=== PATIENT | male | born 1950 | race Caucasian/White ===

== ENCOUNTER 2019-01-20 20:49 | Inpatient (IN) | payer MEDICARE, OTHER ==
[~2019-01-20] VITALS: Ht 172.7 cm; Wt 126.0 kg
[~2019-01-20 20:49] MED LIST: ASPIRIN PO; CLOP75TA19 PO; CRES20 PO; HYZAAR PO; ISOS30TA PO; PLAVIX; prevachol PO
--- NOTE | 2019-01-20 20:53 | QN ---
Documentation Comment Medical screening exam initiated. Patient be seen by another provider. SCOTT GUERRERO MD January 20, 2019 20:53
[2019-01-20] MEDS ORDERED: morphine 4 MG/ML VIAL IV STA (21:27)
[2019-01-20] MEDS ORDERED: ONDANSETRON 4 MG INJ IV STA (21:27)
[2019-01-20] MEDS ORDERED: NITROGLYCERIN 2% 1 GM OINT PKT TD STA (23:04)
[2019-01-20] MEDS ORDERED: ASPIRIN 81 MG TAB PO STA (23:04)
[2019-01-20] MEDS ORDERED: ONDANSETRON 4 MG INJ IV PRN (23:30)
[2019-01-20] MEDS ORDERED: ACETAMINOPHEN 325 MG TAB PO PRN (23:30)
[2019-01-20] MEDS ORDERED: NITROGLYCERIN (SL) 0.4 MG TAB SL PRN (23:30)
--- NOTE | 2019-01-20 23:45 | ERD ---
ER Documentation Chief Complaint Chief Complaint bib [id number] c/o left abd pain since yesterday HPI Patient is a 68-year-old male with coronary disease, hypertension, and diabetes who presents with chest pain and abdominal pain. The patient was brought in by ambulance. He has left upper quadrant abdominal pain which started yesterday which she describes as a constant pressure-like pain. The patient has no fevers. He has no vomiting no diarrhea. He said that his primary doctor is Dr. Jara. His head up operator helper is Dr. Giordano. ROS All systems reviewed and are negative except as per history of present illness. Medications Home Meds Reported Medications Clopidogrel Bisulfate* (Clopidogrel Bisulfate*) 75 Mg Tablet, 75 MG PO DAILY, TAB 08/01/14 Rosuvastatin Calcium* (Crestor*) 20 Mg Tablet, 20 MG PO HS, TAB 08/01/14 Isosorbide Mononitrate* (Imdur*) 30 Mg Tab.sr.24h, 30 MG PO DAILY, TAB 08/01/14 [prevachol] No Conflict Check, 40 MG PO DAILY 06/27/14 [Hyzaar] No Conflict Check, 100 MG PO DAILY 12/31/11 [Plavix] No Conflict Check, 75 MG DAILY 12/31/11 [Aspirin] No Conflict Check, 81 MG PO DAILY 12/31/11 Allergies Allergies: Coded Allergies: No Known Drug Allergy (Verified Allergy, Unknown, 08/01/14) PMhx/Soc History of Surgery: Yes (ANGIOGRAM) Anesthesia Reaction: No Hx Neurological Disorder: No Hx Respiratory Disorders: No Hx Cardiac Disorders: Yes (HTN, HYPERLIPIDEMIA, HI) Hx Psychiatric Problems: No Hx Miscellaneous Medical Probl: Yes (DM, PROSTATE CA) Hx Alcohol Use: No Hx Substance Use: No Hx Tobacco Use: Yes Smoking Status: Former smoker FmHx Family History: diabetes Physical Exam Vitals Vital Signs Date Temp Pulse Resp B/P (MAP) Pulse Ox O2 O2 Flow FiO2 Time Delivery Rate 01/20/19 98.7 71 18 191/78 96 21:08 (115) Physical Exam Const: No acute distress Head: Atraumatic Eyes: Normal Conjunctiva ENT: Normal External Ears, Nose and Mouth. Neck: Full range of motion. No meningismus. Resp: Clear to auscultation bilaterally Cardio: Regular rate and rhythm, no murmurs Abd: Soft, non tender, non distended. Normal bowel sounds Skin: No petechiae or rashes Back: No midline or flank tenderness Ext: No cyanosis, or edema Neur: Awake and alert Psych: Normal Mood and Affect Result Diagram: 01/20/19212801/20/192128 Results 24 hrs Laboratory Tests Test 01/20/19 21:29 White Blood Count 7.8 10^3/ul Red Blood Count 5.09 10^6/ul Hemoglobin 15.2 g/dl Hematocrit 46.2 % Mean Corpuscular Volume 90.8 fl Mean Corpuscular Hemoglobin 29.9 pg Mean Corpuscular Hemoglobin Concent 32.9 g/dl Red Cell Distribution Width 14.1 % Platelet Count 175 10^3/UL Mean Platelet Volume 10.8 fl Immature Granulocytes % 0.300 % Neutrophils % 60.7 % Lymphocytes % 23.6 % Monocytes % 11.6 % Eosinophils % 3.3 % Basophils % 0.5 % Nucleated Red Blood Cells % 0.0 /100WBC Immature Granulocytes # 0.020 10^3/ul Neutrophils # 4.7 10^3/ul Lymphocytes # 1.8 10^3/ul Monocytes # 0.9 10^3/ul Eosinophils # 0.3 10^3/ul Basophils # 0.0 10^3/ul Nucleated Red Blood Cells # 0.0 10^3/ul Prothrombin Time 13.1 Sec Prothrombin Time Ratio 1.0 INR International Normalized Ratio 0.98 Activated Partial Thromboplast Time 27.0 Sec Urine Color YELLOW Urine Clarity SLIGHTLY CLOUDY Urine pH 6.0 Urine Specific [place] 1.020 Urine Ketones NEGATIVE mg/dL Urine Nitrite NEGATIVE mg/dL Urine Bilirubin NEGATIVE mg/dL Urine Urobilinogen NEGATIVE mg/dL Urine Leukocyte Esterase 1+ Carl/ul Urine Microscopic RBC 122 /HPF Urine Microscopic WBC 11 /HPF Urine Squamous Epithelial Cells FEW /HPF Urine Amorphous Crystals FEW /HPF Urine Bacteria FEW /HPF Urine Hemoglobin 3+ mg/dL Urine Glucose 3+ mg/dL Urine Total Protein NEGATIVE mg/dl Sodium Level 144 mmol/L Potassium Level 4.0 mmol/L Chloride Level 103 mmol/L Carbon Dioxide Level 28 mmol/L Anion Gap 13 Blood Urea Nitrogen 26 mg/dl Creatinine 1.51 mg/dl Est Glomerular Filtrat Rate mL/min 46 mL/min Glucose Level 117 mg/dl Calcium Level 9.4 mg/dl Total Bilirubin 0.4 mg/dl Direct Bilirubin 0.00 mg/dl Indirect Bilirubin 0.4 mg/dl Aspartate Amino Transf (AST/SGOT) 26 IU/L Alanine Aminotransferase (ALT/SGPT) 29 IU/L Alkaline Phosphatase 54 IU/L Troponin I < 0.012 ng/ml Total Protein 7.7 g/dl Albumin 4.6 g/dl Globulin 3.10 g/dl Albumin/Globulin Ratio 1.48 Lipase 84 U/L Current Medications Medications Dose Sig/Sal Start Time Status Last (Trade) Ordered Route PRN Stop Time Admin Dose Reason Admin Morphine 4 mg ONCE STAT 01/20/19 DC 01/20/19 Sulfate IV 21:27 01/20/19 21:32 (morphine) 21:28 Ondansetron 4 mg ONCE STAT 01/20/19 DC 01/20/19 HCl (Zofran IV 21:27 01/20/19 21:32 Inj) 21:28 Aspirin 162 mg ONCE STAT 01/20/19 DC (Aspirin) PO 23:04 01/20/19 23:05 1 inch ONCE STAT 01/20/19 DC Nitroglycerin TD 23:04 01/20/19 23:05 (Nitroglyceri n 2% Oint) 1 tab Q5M UP TO 3 01/20/19 Nitroglycerin DOSES PRN 23:30 SL .CHEST (Nitroglyceri PAIN n (Sl Tab) 0.4 Mg) Ondansetron 4 mg ER BRIDGE 01/20/19 HCl (Zofran PRN IV 23:30 01/21/19 Inj) NAUSEA/VOMITI 23:29 NG 650 mg ER BRIDGE 01/20/19 Acetaminophen PRN PO 23:30 01/21/19 (Tylenol .MILD PAIN 23:29 Tab) 1-3 OR TEMP Procedures/MDM EKG read by me: Rate/Rhythm: First-degree AV block at a rate of 63 Intervals: Long [place] interval Impression: First-degree AV block without ischemia Chest x-ray read by radiology. CT abdomen pelvis read by radiology. Patient is a 68-year-old male with coronary disease, hypertension, and diabetes who presents with chest pain and abdominal pain. I am concerned for possible acute coronary syndrome given his significant cardiac risk factors. He said that he has 6 stents in the past. The patient was given aspirin nitroglycerin. CT scan shows possible pyelonephritis and urine sample does show 1+ leukocyte esterase. The patient therefore had a urine culture sent and will be given ceftriaxone 1 g IV. I do not believe the patient has sepsis at this time as he has normal vital signs. The patient will be admitted to the care of Dr. Ventura to a telemetry bed. Departure Diagnosis: Primary Impression: Chest pain Chest pain type: unspecified Qualified Codes: R07.9 - Chest pain, unspecified Additional Impressions: Pyelonephritis Abdominal pain Abdominal location: unspecified location Qualified Codes: R10.9 - Unspecified abdominal pain Condition: SCOTT Menjivar MD January 20, 2019 23:45
[2019-01-21] VITALS (11 sets, daily range): BP systolic 123–157; BP diastolic 59–75; PULSE 49–98; RESP 18–20; Ht 172.7 cm; Wt 126.0 kg
[2019-01-21] MEDS ORDERED: CEFTRIAXONE 1 GM/50 ML (PMX) 50 ML IVPB ONE
--- NOTE | 2019-01-21 | HP ---
Date/Time of Note Date/Time of Note DATE: 01/20/19 TIME: 23:30 Assessment/Plan VTE Prophylaxis Pharmacological prophylaxis: heparin Lines/Catheters IV Catheter Type (from Nrsg): Saline Lock Assessment/Plan Assessment/Plan 1. Left-sided pyelonephritis -IV antibiotic, IV fluid -Follow-up urine culture results 2. Chest pain: Rule out ACS -Patient with a history of PCI to LAD. In 2016, he is also found to have totally occluded RCA which was unsuccessful to intervention -Continue telemetry monitoring -Serial troponin -2D echo -Antiplatelet, statin, beta-ismael. As needed nitro -Cardiology consult in a.m. 3. Type 2 diabetes: Insulin while in-house 4. Dyslipidemia: Continue statin Result Diagram: 01/20/19212801/20/192128 Results 24hrs Laboratory Tests Test 01/20/19 21:29 White Blood Count 7.8 # Red Blood Count 5.09 Hemoglobin 15.2 Hematocrit 46.2 Mean Corpuscular Volume 90.8 Mean Corpuscular Hemoglobin 29.9 Mean Corpuscular Hemoglobin Concent 32.9 Red Cell Distribution Width 14.1 Platelet Count 175 Mean Platelet Volume 10.8 H Immature Granulocytes % 0.300 Neutrophils % 60.7 Lymphocytes % 23.6 Monocytes % 11.6 H Eosinophils % 3.3 Basophils % 0.5 Nucleated Red Blood Cells % 0.0 Immature Granulocytes # 0.020 Neutrophils # 4.7 Lymphocytes # 1.8 Monocytes # 0.9 Eosinophils # 0.3 Basophils # 0.0 Nucleated Red Blood Cells # 0.0 Prothrombin Time 13.1 Prothrombin Time Ratio 1.0 INR International Normalized Ratio 0.98 Activated Partial Thromboplast Time 27.0 Urine Color YELLOW Urine Clarity SLIGHTLY CLOUDY A Urine pH 6.0 Urine Specific [place] 1.020 Urine Ketones NEGATIVE Urine Nitrite NEGATIVE Urine Bilirubin NEGATIVE Urine Urobilinogen NEGATIVE Urine Leukocyte Esterase 1+ H Urine Microscopic RBC 122 H Urine Microscopic WBC 11 H Urine Squamous Epithelial Cells FEW Urine Amorphous Crystals FEW A Urine Bacteria FEW A Urine Hemoglobin 3+ H Urine Glucose 3+ H Urine Total Protein NEGATIVE Sodium Level 144 Potassium Level 4.0 Chloride Level 103 Carbon Dioxide Level 28 Anion Gap 13 Blood Urea Nitrogen 26 H Creatinine 1.51 H Est Glomerular Filtrat Rate mL/min 46 L Glucose Level 117 Calcium Level 9.4 Total Bilirubin 0.4 Direct Bilirubin 0.00 Indirect Bilirubin 0.4 Aspartate Amino Transf (AST/SGOT) 26 Alanine Aminotransferase (ALT/SGPT) 29 Alkaline Phosphatase 54 Troponin I < 0.012 Total Protein 7.7 Albumin 4.6 Globulin 3.10 Albumin/Globulin Ratio 1.48 Lipase 84 HPI/ROS Admit Date/Time Admit Date/Time Hx of Present Illness This is a 68-year-old male with a history of hypertension, type 2 diabetes, dyslipidemia, CAD with stent who presented to ER complaining of left sided abdominal pain/left flank pain and chest pain. Symptoms been going on since yesterday. He also reported occasional shortness of breath. When he presented to the ER, blood pressure was 191/78. EKG without ST elevation or depression. First troponin negative. UA consistent with UTI. CT abdomen/pelvis shows findings suggestive of left-sided pyelonephritis. PMH/Family/Social Past Medical History Past Surgical Hx: other (see hpi) Family History Significant Family History: no pertinent family hx Social History Alcohol Use: heavy (2 beers a day) Smoking Status: Never smoker Drug Use: none Exam Constitutional: other (no acute distress) ENMT: nl external ears & nose Neck: supple, non-tender Respiratory: normal air movement Cardiovascular: nl pulses Gastrointestinal: soft Extremities: normal pulses Medications Current Medications Nitroglycerin (Nitroglycerin (Sl Tab) 0.4 Mg) 1 tab Q5M UP TO 3 DOSES PRN SL .CHEST PAIN; Start 01/20/19 at 23:30 Ondansetron HCl (Zofran Inj) 4 mg ER BRIDGE PRN IV NAUSEA/VOMITING; Start 01/20/19 at 23:30; Stop 01/21/19 at 23:29 Acetaminophen (Tylenol Tab) 650 mg ER BRIDGE PRN PO .MILD PAIN 1-3 OR TEMP; Start 01/20/19 at 23:30; Stop 01/21/19 at 23:29 Ceftriaxone Sodium 50 ml @ 100 mls/hr ONCE ONCE IVPB ; Start 01/21/19 at 00:00; Stop 01/21/19 at 00:29 Coded Allergies: No Known Drug Allergy (Verified Allergy, Unknown, 08/01/14) Social History Smoking Status: Former smoker Exam/Review of Systems Vital Signs Vitals Vital Signs Date Temp Pulse Resp B/P (MAP) Pulse Ox O2 O2 Flow FiO2 Time Delivery Rate 01/20/19 98.7 71 18 191/78 96 21:08 (115) ELLYN SALGADO MD January 21, 2019 00:00
[2019-01-21] MEDS ORDERED: ONDANSETRON 4 MG INJ IV PRN (00:30)
[2019-01-21] MEDS ORDERED: NITROGLYCERIN (SL) 0.4 MG TAB SL PRN (00:30)
[2019-01-21] MEDS ORDERED: hydrALAzine 20 MG INJ IV ONE (00:30)
[2019-01-21] MEDS ORDERED: HYDROCODONE/APAP (5/325) TAB PO PRN ×2 (00:30)
[2019-01-21] MEDS ORDERED: NACL 0.9% 3 ML SYG IV SCH (00:30)
[2019-01-21] MEDS ORDERED: ALBUTEROL/IPRATROPIUM (NEB) 3 ML AMP HHN PRN (00:30)
[2019-01-21] MEDS: SOD CHLORIDE 0.9% 1,000 ML IV SCH ×4 (03:26→21:09)
[2019-01-21] MEDS: ACETAMINOPHEN 325 MG TAB PO PRN ×2 (06:32→13:04)
[2019-01-21] MEDS: INSULIN ASPART [NOVOLOG] 3 ML PEN SC SCH ×4 (07:56→21:00)
[2019-01-21] MEDS: ASPIRIN 81 MG TAB PO SCH (08:17)
[2019-01-21] MEDS: CLOPIDOGREL 75 MG TAB PO SCH (08:18)
[2019-01-21] MEDS: ISOSORBIDE MONONITRATE(SR)30 MG TAB PO SCH (08:18)
[2019-01-21] MEDS: HEPARIN 5,000 UNIT/1 ML VIAL SC SCH ×2 (08:25→21:17)
[2019-01-21] MEDS ORDERED: ASPIRIN 81 MG TAB PO SCH (09:00)
--- NOTE | 2019-01-21 11:36 | PN ---
Date/Time of Note Date/Time of Note DATE: 01/21/19 TIME: 11:36 Objective Vitals Vital Signs Date Temp Pulse Resp B/P (MAP) Pulse Ox O2 O2 Flow FiO2 Time Delivery Rate 01/21/19 90 2.0 09:50 01/21/19 68 08:01 01/21/19 98.0 20 153/75 07:40 (101) 01/21/19 Room Air 02:27 Intake and Output 01/20/19 01/20/19 01/21/19 1515:00 23:00 07:00 IntakeIntake Total 800 ml BalanceBalance 800 ml Results Result Diagram: 01/21/19 0504 01/21/19 0504 Medications Medications Current Medications Sodium Chloride 1,000 ml @ 100 mls/hr Q10H IV Last administered on 01/21/19at 03:26; Admin Dose 100 MLS/HR; Start 01/21/19 at 00:02; Stop 01/21/19 at 23:00 IV Flush (NS 3 ml) 3 ml PER PROTOCOL IV ; Start 01/21/19 at 00:30 Ondansetron HCl (Zofran Inj) 4 mg Q6H PRN IV NAUSEA/VOMITING; Start 01/21/19 at 00:30 Nitroglycerin (Nitroglycerin (Sl Tab) 0.4 Mg) 1 tab Q5M PRN SL .CHEST PAIN; Start 01/21/19 at 00:30 Acetaminophen (Tylenol Tab) 650 mg Q6H PRN PO .PAIN 1-3 OR TEMP Last administered on 01/21/19at 06:32; Admin Dose 650 MG; Start 01/21/19 at 00:30 Acetaminophen/ Hydrocodone Bitart ([place]ood (5/325)) 1 tab Q6H PRN PO .PAIN 4-6; Start 01/21/19 at 00:30 Acetaminophen/ Hydrocodone Bitart ([place] (5/325)) 2 tab Q6H PRN PO .PAIN 7-10 Last administered on 01/21/19at 02:31; Admin Dose 2 TAB; Start 01/21/19 at 00:30 Heparin Sodium (Porcine) (Heparin (5000 Units/1ml)) 5,000 unit Q12 SC Last administered on 01/21/19at 08:25; Admin Dose 5,000 UNIT; Start 01/21/19 at 09:00 Albuterol/ Ipratropium (Duoneb) 3 ml Q2H RESP THERAPY PRN HHN SHORTNESS OF BREATH; Start 01/21/19 at 00:30 Clopidogrel Bisulfate (plaVIX) 75 mg DAILY PO Last administered on 01/21/19at 08:18; Admin Dose 75 MG; Start 01/21/19 at 09:00 Isosorbide Mononitrate (Imdur) 30 mg DAILY PO Last administered on 01/21/19at 08:18; Admin Dose 30 MG; Start 01/21/19 at 09:00 Atorvastatin Calcium (Lipitor) 80 mg DAILY@21 PO ; Start 01/21/19 at 21:00 Aspirin (Aspirin) 81 mg DAILY PO Last administered on 01/21/19at 08:17; Admin Dose 81 MG; Start 01/21/19 at 09:00 Insulin Aspart (Novolog Insulin Pen) NOVOLOG *MILD* ALGORITHM WITH MEALS BEDTIME SC ; Start 01/21/19 at 08:00 Levofloxacin/ Dextrose 150 ml @ 100 mls/hr Q24H IVPB ; Start 01/21/19 at 12:00 VTE Prophylaxis Risk score (from Nsg)>0 risk: 5 SCD applied (from Ns): No SCD contraindication: other Lines/Catheters IV Catheter Type: Silva in Place: No Assessment/Plan Hospital Course Subjective Patient's chest pain has dissipated, left flank pain is also significantly resolved Objective Physical exam General: Patient is laying in bed and answers questions appropriately Mentation: Patient is alert and oriented 4, Head: Normocephalic atraumatic Eyes: EOMI, pupils reactive to light Neck: Supple, nontender, midline Respiratory: Clear to auscultation bilaterally Cardiovascular: regular rate, no obvious murmurs Gastrointestinal: non-tender to palpation, bowel sounds heard. Neurological: Moves all extremities spontaneously Musculoskeletal:, Mild left-sided flank pain Assessment and plan Left-sided pyelonephritis -IV antibiotic, changed to Levaquin for ease of transition to p.o., watch renal function -IV fluid -Follow-up with urine culture results before discharge Chest pain, resolving -Patient has a history of coronary artery disease with his history of PCI to LAD. Dr. Walsh performed cardiac cath in 2016, will reconsult Dr. Walsh -Troponin negative so far -Continue home meds Diabetes mellitus -Insulin while in house Dyslipidemia -Continue statin Disposition -Await final cultures for pyelonephritis before discharge, awaiting cardiology consultation. VANE KAT January 21, 2019 11:36
[2019-01-21] MEDS: LEVOFLOXACIN 750MG/D5W (PMX) 150 ML IVPB SCH (11:41)
--- NOTE | 2019-01-21 16:25 | CONS ---
DATE OF ADMISSION: 01/21/2019 DATE OF CONSULTATION: 01/21/2019 REASON FOR CONSULTATION: Chest pain, assess for acute coronary syndrome. REQUESTING PHYSICIAN: Dr. Villa from the hospitalist service. HISTORY OF PRESENT ILLNESS: Mr. 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 As I discussed with the patient, he is pointing to his flank and his abdomen and not to his chest to me. Upon arrival, temperature 98.7, blood pressure 191/78, pulse is 71, respirations 18, sa tting 96%. The patient's labs revealed a white count of 7.8, hemoglobin 15.2, platelet count 175. S odium 144, potassium 3.9, creatinine 1.25, BUN of 23. Troponin negative. LDL 72, HDL 36, hemoglobin A1c 6.5. INR 0.98. UA positive. The patient underwent an abdominal pelvic CT revealing diffuse le ft perinephric and periaortic inflammatory fat stranding, may concern for underlying urinary tract in fection, pyelonephritis, hepatosplenomegaly, tiny gallstones, moderate prostatomegaly, severe atheros clerotic calcification. The patient's electrocardiogram revealed sinus rhythm, rate of 63, normal ax is, first degree block, borderline inferior Q's. The patient subsequently admitted to the floor and since admitted to the floor, continues to complain of left flank pain. PAST MEDICAL HISTORY: As above in HPI. MEDICATIONS CURRENTLY IN THE HOSPITAL: 1. Lipitor 80 mg at bedtime. 2. Levofloxacin. 3. Heparin 5000 subQ q.12. 4. Plavix 75 mg daily. 5. Imdur 30 mg daily. 6. Aspirin 81 mg daily. 7. Insulin sliding scale. 8. IV fluid hydration at 100 mL an hour. ALLERGIES: NO KNOWN DRUG ALLERGIES. SOCIAL HISTORY: No current tobacco, ETOH or illicit drug use. FAMILY HISTORY: No history of sudden cardiac or early CAD. REVIEW OF SYSTEMS: As above in HPI. CONSTITUTIONAL: No fevers, chills. PULMONARY: No current shortness of breath. CARDIOVASCULAR: No current chest pain. GASTROINTESTINAL: No vomiting. GENITOURINARY: No hematuria. MUSCULOSKELETAL: Degenerative joint disease. PSYCHIATRIC: The patient has depression. NEUROLOGIC: No documented history of CVA. PHYSICAL EXAMINATION: VITAL SIGNS: Temperature of 98, blood pressure 123/59, pulse 62, respiration 20, satting 98%. GENERAL: The patient is alert, awake, complaining of left flank pain. NECK: JVP approximately 8 to 9 cm of water. CHEST: Fair air movement throughout. HEART: Regular rate and rhythm. Normal S1, S2, I/ systolic murmur, nondisplaced PMI. ABDOMEN: Positive bowel sounds, soft, tender to palpation in the left side. EXTREMITIES: No significant pitting edema, 1+ pulses bilateral posterior tibial. LABORATORY DATA: Most recent from today, troponin negative x3. White blood cell count 6.4, hemoglob in 40.4, platelet count 159. IMAGING STUDIES: As above in HPI. No further imaging studies for my review at this time. ECG: As above in HPI. No further electrocardiograms for my review at this time. IMPRESSION: 1. Report of chest pain from ER, but at this time, the patient points to his left flank where he als o has likely pyelonephritis as the cause of his pain. 2. History of percutaneous transluminal coronary angioplasty and stent placement to LAD patent by ca theterization 2016. 3. History of chronic total occlusion of right coronary artery. 4. Hypertension. 5. Dyslipidemia. 6. Pyelonephritis. RECOMMENDATIONS: 1. At this time, would maintain patient on telemetry monitoring to follow rhythm and rates closely. 2. Continue the patient's current aspirin for prevention of cardiac stents and Plavix for stent lomeli ncy. 3. Continue the patient's statin at this time and adjust it according to a fasting lipid panel reche cked. 4. Continue the patient's Imdur for antianginal effect. 5. We will consider additional antihypertensives as necessary to assure good blood pressure control. 6. Follow the patient's blood sugars closely. 7. Continue the patient's antibiotics and follow up all culture data. 8. We will check a 2D echo to further check ejection fraction wall motion or any major valve abnorma lities. Thank you for allowing me to take part in the care of this patient. I will continue to follow along very closely with you. Further recommendations will be made as the patient progresses through his in patient hospital clinical course. Dictated By: AUBREY THURSTON/PEPPER Conf#: [id number] DID#: [id number] CC: ELLYN SALGADO MD; VANE VILLA MD;*EndCC*
--- NOTE | 2019-01-21 17:15 | RADRPT ---
Echocardiogram Report Patient Name: YOSHI MONTANOatient ID: [id number] : 1950 (68y 1m)Study Date: 01/21/2019 2:23:43 PM Gender: MAccession #: [id number] Tech: Coretta Bateman [facility] Location: [facility] Ref.Physician: ELLYN SALGADO Height(Cm): BSA: Weight(Kg): Quality: Technically Difficult StudyAccount #: Procedures: Echocardiographic Report: Transthoracic echocardiogram with complete 2D, M-Mode, and doppler examination. Indications: Chest Pain. Measurements: 2D/M Mode Doppler Measurement Value Normal Range Measurement Value Normal Range LVIDd 2D 3.5 [ 4.2 - 5.8 ] cm AV Peak Nitin 1.3 [ 100.0 - 170.0 ] cm/se c LVIDs 2D 2.3 [ 2.5 - 4.0 ] cm AV Peak PG 6.0 [ 2.0 - 9.0 ] mmHg LVPWd 2D 1.0 [ 0.6 - 1.0 ] cm LVOT Peak Nitin 0.7 [ 70.0 - 110.0 ] cm/sec IVSd 2D 1.1 [ 0.6 - 1.0 ] cm LVOT Peak PG 2.0 [ 2.0 - 6.0 ] mmHg AoR Diam 2D 2.7 [ 2.6 - 3.4 ] cm MV E Peak Nitin 0.6 [ 60.0 - 130.0 ] cm/sec EDV 2D 49.8 [ 62.0 - 150.0 ] ml MV A Peak Nitin 0.9 [ 100.0 - 120.0 ] cm/se c ESV 2D 18.5 [ 21.0 - 61.0 ] ml MV E/A 0.7 [ 0.8 - 1.5 ] ratio EF 2D 62.9 [ 52.0 - 72.0 ] percent MV PHT 83.0 [ 20.0 - 100.0 ] msec LA Dimen 2D 3.1 [ 3.0 - 4.0 ] cm MV Decel Time 282 [ 104 - 258 ] msec MV Decel [place] 2 Lat E` Nitin 0.1 [ 10.0 - 15.0 ] cm/sec Lateral E/E` 6.4 [ 1.0 - 2.0 ] ratio Med E` Nitin 0.1 cm/sec MV E/A 0.7 [ 0.8 - 1.5 ] ratio MVA PHT 2.7 [ 2.0 - 4.0 ] cm2 Findings: Left Ventricle: Normal left ventricular systolic function. Normal left ventricular cavity size. Normal left ventricular wall thickness. Ejection fraction is visually estimated at 55 %. Tissue Doppler/Mitral Doppler indices are consistent with impaired relaxation (Stage I diastolic dysfunction). Right Ventricle: Normal right ventricular size. Normal right ventricular systolic function. Left Atrium: The left atrium is normal in size. Right Atrium: The right atrium is normal in size. Atrial Septum: Normal atrial septum. Ventricular septum: Normal/intact ventricular septum. Mitral Valve: Normal appearance of the mitral valve. Trace mitral regurgitation. Aortic Valve: Normal appearance of the aortic valve. No aortic regurgitation. Tricuspid Valve: Normal appearance of the tricuspid valve. Unable to obtain RVSP due to minimal presence of tricuspid regurgitation. There is trace tricuspid regurgitation. Pulmonic Valve: Pulmonic valve not well visualized. No evidence of pulmonic regurgitation. Pericardium: Normal pericardium with no significant pericardial effusion. Aorta: Normal aortic root. IVC: The IVC is not well visualized. Conclusions: Normal left ventricular systolic function. Normal left ventricular cavity size. Normal left ventricular wall thickness. Ejection fraction is visually estimated at 55 %. Tissue Doppler/Mitral Doppler indices are consistent with impaired relaxation (Stage I diastolic dysfunction). Normal appearance of the mitral valve. Trace mitral regurgitation. Normal appearance of the tricuspid valve. Unable to obtain RVSP due to minimal presence of tricuspid regurgitation. There is trace tricuspid regurgitation. Electronically Signed By: Michele Walsh 2019-01-21 17:14:52 PDT
[2019-01-21] MEDS: ATORVASTATIN 80 MG TAB PO SCH (21:10)
[2019-01-22] VITALS (11 sets, daily range): BP systolic 122–180; BP diastolic 66–84; PULSE 57–83; RESP 18–20
[2019-01-22] MEDS: ASPIRIN 81 MG TAB PO SCH (08:46)
[2019-01-22] MEDS: CLOPIDOGREL 75 MG TAB PO SCH (08:46)
[2019-01-22] MEDS: AMLODIPINE 2.5 MG TAB PO SCH (08:47)
[2019-01-22] MEDS: ISOSORBIDE MONONITRATE(SR)30 MG TAB PO SCH (08:47)
[2019-01-22] MEDS: HEPARIN 5,000 UNIT/1 ML VIAL SC SCH ×2 (08:58→20:39)
[2019-01-22] MEDS: INSULIN ASPART [NOVOLOG] 3 ML PEN SC SCH ×4 (08:58→21:00)
[2019-01-22] MEDS ORDERED: CEFTRIAXONE 1 GM/50 ML (PMX) 50 ML IVPB SCH (09:00)
--- NOTE | 2019-01-22 12:21 | CONS ---
Assessment/Plan Assessment/Plan Hospital Course (Demo Recall) IMPRESSION: 1. Report of chest pain from ER, but at this time, the patient points to his left flank where he also has likely pyelonephritis as the cause of his pain.-neg trop x 3/NL Ef by echo 2. History of percutaneous transluminal coronary angioplasty and stent placement to LAD patent by catheterization 2015. 3. History of chronic total occlusion of right coronary artery. 4. Hypertension. 5. Dyslipidemia. 6. Pyelonephritis. 7.renal failure-ongoing Recc: -Tele -Continue asa/plavix -Contineu norvasc -Contineu abx's and antifungals Consultation Date/Type/Reason Admit Date/Time January 21, 2019 at 11:25 Initial Consult Date 01/21/19 Type of Consult Cardiology Reason for Consultation chest pain Requesting Provider: VANE KAT Date/Time of Note DATE: 01/22/19 TIME: 12:18 Exam/Review of Systems Vital Signs Vitals Vital Signs Date Temp Pulse Resp B/P (MAP) Pulse Ox O2 O2 Flow FiO2 Time Delivery Rate 01/22/19 98.6 65 20 146/70 94 Room Air 11:47 (95) 01/22/19 2.0 05:52 Intake and Output 01/21/19 01/21/19 01/22/19 1515:00 23:00 07:00 IntakeIntake Total 350 ml 800 ml 1400 ml OutputOutput Total 1100 ml 900 ml BalanceBalance 350 ml -300 ml 500 ml Exam Exam Review of Systems: CONSTITUTIONAL: No fevers, chills. PULMONARY: No sob CARDIOVASCULAR: No chest pain/palpitations GASTROINTESTINAL: L flank pain GENITOURINARY: No hematuria/dysuria. MUSCULOSKELETAL: No myagias/arthalgias. PSYCHIATRIC: The patient denies depression. NEUROLOGIC: No weakness Constitutional: alert, oriented Psych: no complaints Head: normocephalic ENMT: mucosa pink and moist Neck: supple, jvd (9 cm water) Respiratory: diminished breath sounds Cardiovascular: regular rate and rhythm Gastrointestinal: soft, non-tender Musculoskeletal: muscle tone (normal) Extremities: edema (none) Neurological: other (No focal deficits) Labs Result Diagram: 01/22/19 0445 01/22/19 0445 Results 24hrs Laboratory Tests Test 01/21/19 17:36 01/21/19 20:59 01/22/19 04:45 01/22/19 08:43 Bedside Glucose 110 142 154 White Blood Count 5.7 Red Blood Count 4.49 L Hemoglobin 13.4 L Hematocrit 41.7 L Mean Corpuscular Volume 92.9 Mean Corpuscular 29.8 Hemoglobin Mean Corpuscular 32.1 Hemoglobin Concent Red Cell Distribution 14.2 Width Platelet Count 149 Mean Platelet Volume 10.9 H Immature Granulocytes % 0.400 Neutrophils % 57.3 Lymphocytes % 27.6 Monocytes % 10.4 Eosinophils % 3.9 Basophils % 0.4 Nucleated Red Blood 0.0 Cells % Immature Granulocytes # 0.020 Neutrophils # 3.3 Lymphocytes # 1.6 Monocytes # 0.6 Eosinophils # 0.2 Basophils # 0.0 Nucleated Red Blood 0.0 Cells # Sodium Level 142 Potassium Level 3.7 Chloride Level 105 Carbon Dioxide Level 29 Anion Gap 8 Blood Urea Nitrogen 18 Creatinine 1.08 Est Glomerular Filtrat > 60 Rate mL/min Glucose Level 111 Calcium Level 8.9 Phosphorus Level 4.0 Magnesium Level 2.0 Troponin I < 0.012 Triglycerides Level 260 H Cholesterol Level 140 LDL Cholesterol, 59 Calculated HDL Cholesterol 29 L Cholesterol/HDL Ratio 4.8 Medications Medications Current Medications IV Flush (NS 3 ml) 3 ml PER PROTOCOL IV ; Start 01/21/19 at 00:30 Ondansetron HCl (Zofran Inj) 4 mg Q6H PRN IV NAUSEA/VOMITING; Start 01/21/19 at 00:30 Nitroglycerin (Nitroglycerin (Sl Tab) 0.4 Mg) 1 tab Q5M PRN SL .CHEST PAIN; Start 01/21/19 at 00:30 Acetaminophen (Tylenol Tab) 650 mg Q6H PRN PO .PAIN 1-3 OR TEMP Last administered on 01/21/19at 13:04; Admin Dose 650 MG; Start 01/21/19 at 00:30 Acetaminophen/ Hydrocodone Bitart ([place] (5/325)) 1 tab Q6H PRN PO .PAIN 4-6 Last administered on 01/21/19at 18:02; Admin Dose 1 TAB; Start 01/21/19 at 00:30 Acetaminophen/ Hydrocodone Bitart ([place] (5/325)) 2 tab Q6H PRN PO .PAIN 7-10 Last administered on 01/21/19at 02:31; Admin Dose 2 TAB; Start 01/21/19 at 00:30 Heparin Sodium (Porcine) (Heparin (5000 Units/1ml)) 5,000 unit Q12 SC Last administered on 01/22/19 08:58; Admin Dose 5,000 UNIT; Start 01/21/19 at 09:00 Albuterol/ Ipratropium (Duoneb) 3 ml Q2H RESP THERAPY PRN HHN SHORTNESS OF BREATH; Start 01/21/19 at 00:30 Clopidogrel Bisulfate (plaVIX) 75 mg DAILY PO Last administered on 01/22/19 08:46; Admin Dose 75 MG; Start 01/21/19 at 09:00 Isosorbide Mononitrate (Imdur) 30 mg DAILY PO Last administered on 01/22/19 08:47; Admin Dose 30 MG; Start 01/21/19 at 09:00 Atorvastatin Calcium (Lipitor) 80 mg DAILY@21 PO Last administered on 01/21/19 21:10; Admin Dose 80 MG; Start 01/21/19 at 21:00 Aspirin (Aspirin) 81 mg DAILY PO Last administered on 01/22/19 08:46; Admin Dose 81 MG; Start 01/21/19 at 09:00 Insulin Aspart (Novolog Insulin Pen) NOVOLOG *MILD* ALGORITHM WITH MEALS BEDTIME SC Last administered on 01/22/19 08:58; Admin Dose 1 UNIT; Start 01/21/19 at 08:00 Levofloxacin/ Dextrose 150 ml @ 100 mls/hr Q24H IVPB Last administered on 01/21/19 11:41; Admin Dose 100 MLS/HR; Start 01/21/19 at 12:00 Amlodipine Besylate (Norvasc) 2.5 mg DAILY PO Last administered on 01/22/19 08:47; Admin Dose 2.5 MG; Start 01/22/19 at 09:00 Fluconazole (Diflucan) 100 mg DAILY PO ; Start 01/22/19 at 11:30 AUBREY MUÑOZ January 22, 2019 12:21
[2019-01-22] MEDS: ACETAMINOPHEN 325 MG TAB PO PRN ×2 (13:37→20:34)
--- NOTE | 2019-01-22 13:50 | PN ---
Date/Time of Note Date/Time of Note DATE: 01/22/19 TIME: 13:48 Objective Vitals Vital Signs Date Temp Pulse Resp B/P (MAP) Pulse Ox O2 O2 Flow FiO2 Time Delivery Rate 01/22/19 83 12:01 01/22/19 98.6 20 146/70 94 Room Air 11:47 (95) 01/22/19 2.0 05:52 Intake and Output 01/21/19 01/21/19 01/22/19 1515:00 23:00 07:00 IntakeIntake Total 350 ml 800 ml 1400 ml OutputOutput Total 1100 ml 900 ml BalanceBalance 350 ml -300 ml 500 ml Results Result Diagram: 01/22/195 01/22/195 Medications Medications Current Medications IV Flush (NS 3 ml) 3 ml PER PROTOCOL IV ; Start 01/21/19 at 00:30 Ondansetron HCl (Zofran Inj) 4 mg Q6H PRN IV NAUSEA/VOMITING; Start 01/21/19 at 00:30 Nitroglycerin (Nitroglycerin (Sl Tab) 0.4 Mg) 1 tab Q5M PRN SL .CHEST PAIN; Start 01/21/19 at 00:30 Acetaminophen (Tylenol Tab) 650 mg Q6H PRN PO .PAIN 1-3 OR TEMP Last administered on 01/22/19at 13:37; Admin Dose 650 MG; Start 01/21/19 at 00:30 Acetaminophen/ Hydrocodone Bitart ([place] (5/325)) 1 tab Q6H PRN PO .PAIN 4-6 Last administered on 01/21/19at 18:02; Admin Dose 1 TAB; Start 01/21/19 at 00:30 Acetaminophen/ Hydrocodone Bitart ([place] (5/325)) 2 tab Q6H PRN PO .PAIN 7-10 Last administered on 01/21/19at 02:31; Admin Dose 2 TAB; Start 01/21/19 at 00:30 Heparin Sodium (Porcine) (Heparin (5000 Units/1ml)) 5,000 unit Q12 SC Last administered on 01/22/19at 08:58; Admin Dose 5,000 UNIT; Start 01/21/19 at 09:00 Albuterol/ Ipratropium (Duoneb) 3 ml Q2H RESP THERAPY PRN HHN SHORTNESS OF BREATH; Start 01/21/19 at 00:30 Clopidogrel Bisulfate (plaVIX) 75 mg DAILY PO Last administered on 01/22/19 08:46; Admin Dose 75 MG; Start 01/21/19 at 09:00 Isosorbide Mononitrate (Imdur) 30 mg DAILY PO Last administered on 01/22/19 08:47; Admin Dose 30 MG; Start 01/21/19 at 09:00 Atorvastatin Calcium (Lipitor) 80 mg DAILY@21 PO Last administered on 01/21/19 21:10; Admin Dose 80 MG; Start 01/21/19 at 21:00 Aspirin (Aspirin) 81 mg DAILY PO Last administered on 01/22/19 08:46; Admin Dose 81 MG; Start 01/21/19 at 09:00 Insulin Aspart (Novolog Insulin Pen) NOVOLOG *MILD* ALGORITHM WITH MEALS BEDTIME SC Last administered on 01/22/19 08:58; Admin Dose 1 UNIT; Start 01/21/19 at 08:00 Levofloxacin/ Dextrose 150 ml @ 100 mls/hr Q24H IVPB Last administered on 01/21/19 11:41; Admin Dose 100 MLS/HR; Start 01/21/19 at 12:00 Amlodipine Besylate (Norvasc) 2.5 mg DAILY PO Last administered on 01/22/19 08:47; Admin Dose 2.5 MG; Start 01/22/19 at 09:00 Fluconazole (Diflucan) 100 mg DAILY PO ; Start 01/22/19 at 11:30 VTE Prophylaxis Risk score (from Ns)>0 risk: 3 SCD applied (from Ns): No SCD contraindication: other Lines/Catheters IV Catheter Type: Silva in Place: No Assessment/Plan Hospital Course Subjective Patient's flank pain has resolved Objective Physical exam General: Patient is laying in bed and answers questions appropriately Mentation: Patient is alert and oriented 4, Head: Normocephalic atraumatic Eyes: EOMI, pupils reactive to light Neck: Supple, nontender, midline Respiratory: Clear to auscultation bilaterally Cardiovascular: regular rate, no obvious murmurs Gastrointestinal: non-tender to palpation, bowel sounds heard. Neurological: Moves all extremities spontaneously Musculoskeletal:, no flank pain Assessment and plan Left-sided pyelonephritis -IV antibiotic, changed to Levaquin for ease of transition to p.o., watch renal function - antifungal added due to yeast on culture -Follow-up with urine culture results before discharge Chest pain, resolved -Patient has a history of coronary artery disease with his history of PCI to LAD. Dr. Walsh performed cardiac cath in 2015, will reconsult Dr. 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 No chest pain. Diabetes mellitus -Insulin while in house Dyslipidemia -Continue statin Disposition -Await final cultures for pyelonephritis before discharge VANE KAT January 22, 2019 13:50
[2019-01-22] MEDS: FLUCONAZOLE 100 MG TAB PO SCH (13:59)
[2019-01-22] MEDS: LEVOFLOXACIN 750MG/D5W (PMX) 150 ML IVPB SCH (13:59)
[2019-01-22] MEDS: ATORVASTATIN 80 MG TAB PO SCH (20:34)
[2019-01-23 02:00] VITALS: BP 176/80; PULSE 63
[2019-01-23] MEDS ORDERED: hydrALAzine 20 MG INJ IV ONE (02:30)
[2019-01-23 02:38] VITALS: BP 146/67; PULSE 65; RESP 18
[2019-01-23 07:43] VITALS: BP 175/83; PULSE 64; RESP 20
[2019-01-23] MEDS: INSULIN ASPART [NOVOLOG] 3 ML PEN SC SCH (07:50)
[2019-01-23] MEDS: FLUCONAZOLE 100 MG TAB PO SCH (08:37)
[2019-01-23] MEDS: CLOPIDOGREL 75 MG TAB PO SCH (08:38)
[2019-01-23] MEDS: AMLODIPINE 2.5 MG TAB PO SCH (08:38)
[2019-01-23] MEDS: ASPIRIN 81 MG TAB PO SCH (08:38)
[2019-01-23 09:38] VITALS: BP 166/67; PULSE 68; RESP 17
--- NOTE | 2019-01-23 09:54 | CONS ---
Consult Date/Type/Reason Admit Date/Time January 21, 2019 at 11:25 Initial Consult Date Requesting Provider: VANE KAT Date/Time of Note DATE: 01/23/19 TIME: 09:52 Subjective NO acute events -- BP on high side - ad drX as needed. ROS: No fever, no chills, no nausea, no vomiting, no diarrhea/constipation Objective Vitals Vital Signs Date Temp Pulse Resp B/P (MAP) Pulse Ox O2 O2 Flow FiO2 Time Delivery Rate 01/23/19 68 17 166/67 Room Air 09:38 (100) 01/23/19 98.6 96 07:43 01/22/19 2.0 05:52 Intake and Output 01/22/19 01/22/19 01/23/19 1515:00 23:00 07:00 IntakeIntake Total 800 ml 400 ml BalanceBalance 800 ml 400 ml Exam General: WN/WD/NAD, AOx 3 HEENT: Unicetric/atraumatic/EOMI (follows commands) NECK: JVD elevated, no thyromegaly Lymph: no lymphadenopathy HEART: regular with no S3, II/ systolic murmur at apex LUNGS: Coarse sounds ABD: soft, NT, ND, +BS : Intact Neuro: non focal SKIN: chronic changes EXT: trace edema Results/Medications Result Diagram: 01/23/1951401/23/1915 Results 24 hrs Laboratory Tests Test 01/22/19 14:02 01/22/19 17:46 01/22/19 20:36 01/23/19 05:15 Bedside Glucose 141 116 104 White Blood Count 4.8 Red Blood Count 4.62 L Hemoglobin 13.9 L Hematocrit 42.2 Mean Corpuscular Volume 91.3 Mean Corpuscular 30.1 Hemoglobin Mean Corpuscular 32.9 Hemoglobin Concent Red Cell Distribution 13.9 Width Platelet Count 145 Mean Platelet Volume 11.0 H Immature Granulocytes % 0.200 Neutrophils % 47.8 Lymphocytes % 34.9 Monocytes % 10.7 Eosinophils % 5.8 Basophils % 0.6 Nucleated Red Blood 0.0 Cells % Immature Granulocytes # 0.010 Neutrophils # 2.3 Lymphocytes # 1.7 Monocytes # 0.5 Eosinophils # 0.3 Basophils # 0.0 Nucleated Red Blood 0.0 Cells # Sodium Level 144 Potassium Level 4.1 Chloride Level 103 Carbon Dioxide Level 30 Anion Gap 11 Blood Urea Nitrogen 19 Creatinine 1.14 Est Glomerular Filtrat > 60 Rate mL/min Glucose Level 109 Calcium Level 9.5 Phosphorus Level 4.2 Magnesium Level 1.8 Test 01/23/19 08:37 Bedside Glucose 103 Home Meds Reported Medications Clopidogrel Bisulfate* (Clopidogrel Bisulfate*) 75 Mg Tablet, 75 MG PO DAILY, TAB 08/01/14 Rosuvastatin Calcium* (Crestor*) 20 Mg Tablet, 20 MG PO HS, TAB 08/01/14 Isosorbide Mononitrate* (Imdur*) 30 Mg Tab.sr.24h, 30 MG PO DAILY, TAB 08/01/14 [prevachol] No Conflict Check, 40 MG PO DAILY 06/27/14 [Hyzaar] No Conflict Check, 100 MG PO DAILY 12/31/11 [Plavix] No Conflict Check, 75 MG DAILY 12/31/11 [Aspirin] No Conflict Check, 81 MG PO DAILY 12/31/11 Medications Current Medications IV Flush (NS 3 ml) 3 ml PER PROTOCOL IV ; Start 01/21/19 at 00:30 Ondansetron HCl (Zofran Inj) 4 mg Q6H PRN IV NAUSEA/VOMITING; Start 01/21/19 at 00:30 Nitroglycerin (Nitroglycerin (Sl Tab) 0.4 Mg) 1 tab Q5M PRN SL .CHEST PAIN; Start 01/21/19 at 00:30 Acetaminophen (Tylenol Tab) 650 mg Q6H PRN PO .PAIN 1-3 OR TEMP Last administered on 01/22/19at 20:34; Admin Dose 650 MG; Start 01/21/19 at 00:30 Acetaminophen/ Hydrocodone Bitart ([place] (5/325)) 1 tab Q6H PRN PO .PAIN 4-6 Last administered on 01/21/19at 18:02; Admin Dose 1 TAB; Start 01/21/19 at 00:30 Acetaminophen/ Hydrocodone Bitart ([place] (5/325)) 2 tab Q6H PRN PO .PAIN 7-10 Last administered on 01/21/19at 02:31; Admin Dose 2 TAB; Start 01/21/19 at 00:30 Heparin Sodium (Porcine) (Heparin (5000 Units/1ml)) 5,000 unit Q12 SC Last administered on 01/22/19at 20:39; Admin Dose 5,000 UNIT; Start 01/21/19 at 09:00 Albuterol/ Ipratropium (Duoneb) 3 ml Q2H RESP THERAPY PRN HHN SHORTNESS OF BREATH; Start 01/21/19 at 00:30 Clopidogrel Bisulfate (plaVIX) 75 mg DAILY PO Last administered on 01/23/19 08:38; Admin Dose 75 MG; Start 01/21/19 at 09:00 Isosorbide Mononitrate (Imdur) 30 mg DAILY PO Last administered on 01/22/19 08:47; Admin Dose 30 MG; Start 01/21/19 at 09:00; Status Hold Atorvastatin Calcium (Lipitor) 80 mg DAILY@21 PO Last administered on 01/22/19 20:34; Admin Dose 80 MG; Start 01/21/19 at 21:00 Aspirin (Aspirin) 81 mg DAILY PO Last administered on 01/23/19 08:38; Admin Dose 81 MG; Start 01/21/19 at 09:00 Insulin Aspart (Novolog Insulin Pen) NOVOLOG *MILD* ALGORITHM WITH MEALS BEDTIME SC Last administered on 01/22/19 14:19; Admin Dose 1 UNIT; Start 01/21/19 at 08:00 Levofloxacin/ Dextrose 150 ml @ 100 mls/hr Q24H IVPB Last administered on 01/22/19 13:59; Admin Dose 100 MLS/HR; Start 01/21/19 at 12:00 Amlodipine Besylate (Norvasc) 2.5 mg DAILY PO Last administered on 01/23/19 08:38; Admin Dose 2.5 MG; Start 01/22/19 at 09:00 Fluconazole (Diflucan) 100 mg DAILY PO Last administered on 01/23/19 08:37; Admin Dose 100 MG; Start 01/22/19 at 11:30 Assessment/Plan Hospital Course (Demo Recall) 1. Report of chest pain from ER, but at this time, the patient points to his left flank where he also has likely pyelonephritis as the cause of his pain.-neg trop x 3/NL Ef by echo - no CP now - michael 2. History of percutaneous transluminal coronary angioplasty and stent placement to LAD patent by catheterization 2015 - r/o mI - off tele ow. 3. History of chronic total occlusion of right coronary artery. 4. Hypertension- on high side, add Rx now. Treated. 5. Dyslipidemia. 6. Pyelonephritis- on anti-Bx now. 7. Renal failure-ongoing - improved urine output. ALFONSO RICO MD January 23, 2019 09:54
--- NOTE | 2019-01-23 12:29 | PN ---
Date/Time of Note Date/Time of Note DATE: 01/23/19 TIME: 12:14 Assessment/Plan VTE Prophylaxis Risk score (from Ns)>0 risk: 2 SCD applied (from [facility]): Yes SCD contraindicated: other Pharmacological prophylaxis: other Lines/Catheters IV [facility]from [facility] [place] Urinary Cath still in place: No Assessment/Plan Assessment/Plan 1. UTI with left-sided pyelonephritis, urine culture with [place] albicans, I will put him on both levaquin and diflucan 2. No chest pain 3. Diabetes mellitus, resume home meds 4. Dyslipidemia, on statin 5. History of percutaneous transluminal coronary angioplasty and stent placement to LAD patent by catheterization 2016, stable 6. Hypertension, follow up with PCP for medication adjustment Result Diagram: 01/23/1915 01/23/19 0515 Results 24hrs Laboratory Tests Test 01/22/19 14:02 01/22/19 17:46 01/22/19 20:36 01/23/19 05:15 Bedside Glucose 141 116 104 White Blood Count 4.8 Red Blood Count 4.62 L Hemoglobin 13.9 L Hematocrit 42.2 Mean Corpuscular Volume 91.3 Mean Corpuscular 30.1 Hemoglobin Mean Corpuscular 32.9 Hemoglobin Concent Red Cell Distribution 13.9 Width Platelet Count 145 Mean Platelet Volume 11.0 H Immature Granulocytes % 0.200 Neutrophils % 47.8 Lymphocytes % 34.9 Monocytes % 10.7 Eosinophils % 5.8 Basophils % 0.6 Nucleated Red Blood 0.0 Cells % Immature Granulocytes # 0.010 Neutrophils # 2.3 Lymphocytes # 1.7 Monocytes # 0.5 Eosinophils # 0.3 Basophils # 0.0 Nucleated Red Blood 0.0 Cells # Sodium Level 144 Potassium Level 4.1 Chloride Level 103 Carbon Dioxide Level 30 Anion Gap 11 Blood Urea Nitrogen 19 Creatinine 1.14 Est Glomerular Filtrat > 60 Rate mL/min Glucose Level 109 Calcium Level 9.5 Phosphorus Level 4.2 Magnesium Level 1.8 Test 01/23/19 08:37 Bedside Glucose 103 Subjective 24 Hr Interval Summary Free Text/Dictation no pain, no fever or chills Exam/Review of Systems Exam Vitals Vital Signs Date Temp Pulse Resp B/P (MAP) Pulse Ox O2 O2 Flow FiO2 Time Delivery Rate 01/23/19 68 17 166/67 Room Air 09:38 (100) 01/23/19 98.6 96 07:43 01/22/19 2.0 05:52 Intake and Output 01/22/19 01/22/19 01/23/19 1515:00 23:00 07:00 IntakeIntake Total 800 ml 400 ml BalanceBalance 800 ml 400 ml Constitutional: alert, oriented, well developed, obese Psych: no complaints, nl mood/affect Head: normocephalic, atraumatic Eyes: nl conjunctiva, EOMI, nl lids ENMT: nl external ears & nose, nl lips & teeth, nl nasal mucosa & septum Neck: supple, non-tender Respiratory: clear to auscultation, normal air movement; No congested cough, No crackles/rales, No diminished breath sounds, No intercostal retraction, No labored breathing, No respirations, No tactile fr emitus, No wheezing, No other Cardiovascular: regular rate and rhythm, nl pulses; No bruits, No diastolic murmur, No edema, No gallop, No irregular rhythm, No jugular venous distention (JVD), No murmurs/extra sounds, No rub, No systolic murmur, No S3, No S4, No other Gastrointestinal: soft, nl liver, spleen, non-tender; No ascites, No bowel sounds, No distended, No firm, No hepatomegaly, No mass, No rebound or guarding, No splenomegaly, No surgical scars, No tender, No other Musculoskeletal: nl extremities to inspection Extremities: normal pulses; No calf tenderness, No cyanosis, No clubbing, No edema, No pitting pedal edema, No palpable cord, No tenderness, No other Neurological: CATERPILLAR DRIVER II-XII intact, nl mental status, nl speech, nl strength Results Results 24hrs Laboratory Tests Test 01/22/19 14:02 01/22/19 17:46 01/22/19 20:36 01/23/19 05:15 Bedside Glucose 141 116 104 White Blood Count 4.8 Red Blood Count 4.62 L Hemoglobin 13.9 L Hematocrit 42.2 Mean Corpuscular Volume 91.3 Mean Corpuscular 30.1 Hemoglobin Mean Corpuscular 32.9 Hemoglobin Concent Red Cell Distribution 13.9 Width Platelet Count 145 Mean Platelet Volume 11.0 H Immature Granulocytes % 0.200 Neutrophils % 47.8 Lymphocytes % 34.9 Monocytes % 10.7 Eosinophils % 5.8 Basophils % 0.6 Nucleated Red Blood 0.0 Cells % Immature Granulocytes # 0.010 Neutrophils # 2.3 Lymphocytes # 1.7 Monocytes # 0.5 Eosinophils # 0.3 Basophils # 0.0 Nucleated Red Blood 0.0 Cells # Sodium Level 144 Potassium Level 4.1 Chloride Level 103 Carbon Dioxide Level 30 Anion Gap 11 Blood Urea Nitrogen 19 Creatinine 1.14 Est Glomerular Filtrat > 60 Rate mL/min Glucose Level 109 Calcium Level 9.5 Phosphorus Level 4.2 Magnesium Level 1.8 Test 01/23/19 08:37 Bedside Glucose 103 Medications Medication Current Medications IV Flush (NS 3 ml) 3 ml PER PROTOCOL IV ; Start 01/21/19 at 00:30 Ondansetron HCl (Zofran Inj) 4 mg Q6H PRN IV NAUSEA/VOMITING; Start 01/21/19 at 00:30 Nitroglycerin (Nitroglycerin (Sl Tab) 0.4 Mg) 1 tab Q5M PRN SL .CHEST PAIN; Start 01/21/19 at 00:30 Acetaminophen (Tylenol Tab) 650 mg Q6H PRN PO .PAIN 1-3 OR TEMP Last a dministered on 01/22/19 20:34; Admin Dose 650 MG; Start 01/21/19 at 00:30 Acetaminophen/ Hydrocodone Bitart ([place] (5/325)) 1 tab Q6H PRN PO .PAIN 4-6 Last administered on 01/21/19at 18:02; Admin Dose 1 TAB; Start 01/21/19 at 00:30 Acetaminophen/ Hydrocodone Bitart ([place] (5/325)) 2 tab Q6H PRN PO .PAIN 7-10 Last administered on 01/21/19at 02:31; Admin Dose 2 TAB; Start 01/21/19 at 00:30 Albuterol/ Ipratropium (Duoneb) 3 ml Q2H RESP THERAPY PRN HHN SHORTNESS OF BREATH; Start 01/21/19 at 00:30 Clopidogrel Bisulfate (plaVIX) 75 mg DAILY PO Last administered on 01/23/19at 08:38; Admin Dose 75 MG; Start 01/21/19 at 09:00 Isosorbide Mononitrate (Imdur) 30 mg DAILY PO Last administered on 01/22/19 08:47; Admin Dose 30 MG; Start 01/21/19 at 09:00; Status Hold Atorvastatin Calcium (Lipitor) 80 mg DAILY@21 PO Last administered on 01/22/19 20:34; Admin Dose 80 MG; Start 01/21/19 at 21:00 Aspirin (Aspirin) 81 mg DAILY PO Last administered on 01/23/19 08:38; Admin Dose 81 MG; Start 01/21/19 at 09:00 Insulin Aspart (Novolog Insulin Pen) NOVOLOG *MILD* ALGORITHM WITH MEALS BEDTIME SC Last administered on 01/22/19 14:19; Admin Dose 1 UNIT; Start 01/21/19 at 08:00 Levofloxacin/ Dextrose 150 ml @ 100 mls/hr Q24H IVPB Last administered on 01/22/19 13:59; Admin Dose 100 MLS/HR; Start 01/21/19 at 12:00 Amlodipine Besylate (Norvasc) 2.5 mg DAILY PO Last administered on 01/23/19 08:38; Admin Dose 2.5 MG; Start 01/22/19 at 09:00 Fluconazole (Diflucan) 100 mg DAILY PO Last administered on 01/23/19 08:37; Admin Dose 100 MG; Start 01/22/19 at 11:30 Nifedipine (Procardia Xl) 30 mg BID PO ; Start 01/23/19 at 21:00 RENETTA LANG MD January 23, 2019 12:26
[2019-01-23] MEDS ORDERED: FLUC100T PO (12:31)
[2019-01-23] MEDS ORDERED: LEVO250T9 PO (12:31)
--- NOTE | 2019-01-23 12:38 | DS ---
Date/Time of Note Date/Time of Note DATE: 01/23/19 TIME: 12:31 Discharge Summary Admission/Discharge Info Admit Date/Time January 21, 2019 at 11:25 Discharge Date/Time Discharge Diagnosis 1. UTI with left-sided pyelonephritis, urine culture with [place] albicans, I w ill put him on both augmentin and diflucan 2. No chest pain 3. Diabetes mellitus, resume home meds 4. Dyslipidemia, on statin 5. History of percutaneous transluminal coronary angioplasty and stent placement to LAD patent by catheterization 2016, stable 6. Hypertension, follow up with PCP for medication adjustment Patient Condition: Stable Procedures PROCEDURE: CT abdomen and pelvis without contrast. CLINICAL INDICATION: Abdominal pain. TECHNIQUE: CT scan of the abdomen and pelvis without contrast was performed. Sagittal and coronal reformatted images were obtained from the axial source images. DICOM images are available. One or more of the following dose reduction techniques were used: Automated exposure control, adjustment of the mA and/or kV according to patient size, use of iterative reconstruction technique. CTDI = 26.57 mGy; DLP = 1828.50 mGy-cm COMPARISON: None. FINDINGS: Visualized lower thorax: Cardiomegaly with diffuse coronary artery a therosclerotic calcification is present. Bibasilar subsegmental atelectasis is present. There is no evidence for pleural effusion. Liver, gallbladder, pancreas and spleen: Hepatomegaly of 21 cm is present with mild hepatic steatosis but preserved liver contour. There is no evidence for a liver mass or ductal dilatation. Tiny gallstones suggested in the dependent gallbladder fundus without cholecystitis or. No common bile duct abnormality is demonstrated. The pancreas is unremarkable. Mild splenomegaly of 14 cm is present without splenic mass. Adrenal glands and genitourinary system: The adrenal glands are normal bilater ally. The right kidney is unremarkable. There is diffuse inflammatory stranding surrounding the left kidney concerning for pyelonephritis but there is no evidence of organized collection on this unenhanced exam to suggest renal abscess. There is no left-sided calculus or hydronephrosis. Mild left periureteric fat inflammation is seen without calculus. The right ureter is unremarkable. No urinary bladder abnormality is demonstrated. Moderate prostatomegaly is present the volume of the gland estimated 70 cc. The visualized scrotum shows no abnormality. Gastrointestinal system: The stomach is normal in caliber with no abnormality of significance. The small bowel is normal in caliber with no ileus, obstruction or wall thickening. There is no evidence of appendicitis. The colon shows no evidence for wall thickening or acute abnormality. There is no evidence for acute colitis or diverticulitis. Some fat deposition in the rectosigmoid colon may be the sequela of remote inflammation. Minimal diverticular disease of the distal colon is present. Peritoneum, retroperitoneum, lymph nodes and vessels: The abdominal aorta is normal in caliber. There is severe aortic and iliac system atherosclerotic calcification. The inferior vena cava is unremarkable. There is no evidence for adenopathy or mass. There is no ascites. No pneumoperitoneum is present. A fat-containing umbilical hernia is noted Osseous structures and musculoskeletal findings: There is no fracture, lytic or blastic lesion. Degenerative enthesopathy of the thoracolumbar spine is noted with facet arthropathy and mild anterolisthesis with central canal stenosis at L4-5 No muscular abnormality or soft tissue pathology is present. RPTAT:HJJR IMPRESSION: 1. Diffuse left perinephric and periureteric inflammatory fat stranding raises concern for underlying urinary tract infection, pyelonephritis, without obvious abscess on this unenhanced exam. Correlation with urinalysis and leukocytosis, if not already performed, is recommended. 2. Hepatosplenomegaly with mild hepatic steatosis. 3. Tiny gallstones suggested in the gallbladder fundus without cholecystitis. 4. Moderate prostatomegaly the volume of the gland estimated 70 cc. 5. Minimal diverticular disease of the distal colon with some fat deposition in the serosa of the rectosigmoid region suggesting the sequela of prior inflammation. 6. Severe atherosclerotic calcification of the aorta and iliac systems. 7. Degenerative changes of the thoracolumbar spine with anterolisthesis and central stenosis at L4-5. Physician Jason Date Time Electronically viewed and signed by Physician Jason on 01/20/2019 23:22 Hospital Course This is a 68-year-old male with a history of hypertension, type 2 diabetes, dyslipidemia, CAD with stent who presented to ER complaining of left sided abdominal pain/left flank pain and lower chest pain. No fever or chills, denies dysuria. WBC 7,800, urine WBC 11, CT scan Diffuse left perinephric and periureteric inflammatory fat stranding raises concern for underlying urinary tract infection, pyelonephritis, without obvious abscess. Patient is treated with levaquin for UTI. Urine culture back as orville albicans today, diflucan is added. Patient has no pain, no fever or chills, he will be on 7 more days of augmentin and diflucan. Left lower chest pain is part of his left flank pain. Noncardiac. Troponin is negative. No cardiac work up needed at this time per cardiology. Home Meds Active Scripts Levofloxacin* (Levofloxacin*) 250 Mg Tablet, 250 MG PO DAILY for 7 Days, TAB Prov:RENETTA LANG MD 01/23/19 Fluconazole* (Diflucan*) 100 Mg Tablet, 100 MG PO DAILY for 7 Days, TAB Prov:RENETTA LANG MD 01/23/19 Reported Medications Clopidogrel Bisulfate* (Clopidogrel Bisulfate*) 75 Mg Tablet, 75 MG PO DAILY, TAB 08/01/14 Rosuvastatin Calcium* (Crestor*) 20 Mg Tablet, 20 MG PO HS, TAB 08/01/14 Isosorbide Mononitrate* (Imdur*) 30 Mg Tab.sr.24h, 30 MG PO DAILY, TAB 08/01/14 [prevachol] No Conflict Check, 40 MG PO DAILY 06/27/14 [Hyzaar] No Conflict Check, 100 MG PO DAILY 12/31/11 [Plavix] No Conflict Check, 75 MG DAILY 12/31/11 [Aspirin] No Conflict Check, 81 MG PO DAILY 12/31/11 Follow-up Plan PCP and cardiology Primary Care Provider Not On Staff Doctor Pending Labs Laboratory Tests Test 01/22/19 14:02 01/22/19 17:46 01/22/19 20:36 01/23/19 05:15 Bedside 141 116 104 Glucose mg/dL (70-220) mg/dL (70-220) mg/dL (70-220) White Blood 4.8 Count 10^3/ul (4.8-1 0.8) Red Blood 4.62 Count 10^6/ul (4.70- 6.10) Hemoglobin 13.9 g/dl (14.0-18. 0) Hematocrit 42.2 % (42.0-52.0) Mean 91.3 Corpuscular fl (82.0-101.0 Volume ) Mean 30.1 Corpuscular pg (29.0-33.0) Hemoglobin Mean 32.9 Corpuscular g/dl (32.0-37. Hemoglobin Conc 0) ent Red Cell 13.9 Distribution % (11.5-14.5) Width Platelet Count 145 10^3/UL (140-4 15) Mean Platelet 11.0 Volume fl (7.4-10.4) Immature 0.200 Granulocytes % % (0.001-0.429 ) Neutrophils % 47.8 % (39.0-77.0) Lymphocytes % 34.9 % (15.0-51.0) Monocytes % 10.7 % (0.0-11.0) Eosinophils % 5.8 % (0.0-7.0) Basophils % 0.6 % (0.0-2.0) Nucleated Red 0.0 Blood Cells % /100WBC (0.0-0 .0) Immature 0.010 Granulocytes # 10^3/ul (0.0-0 .031) Neutrophils # 2.3 10^3/ul (1.6-7 .5) Lymphocytes # 1.7 10^3/ul (0.8-2 .9) Monocytes # 0.5 10^3/ul (0.3-0 .9) Eosinophils # 0.3 10^3/ul (0.0-0 .5) Basophils # 0.0 10^3/ul (0.0-0 .1) Nucleated Red 0.0 Blood Cells # 10^3/ul (0.0-0 .0) Sodium Level 144 mmol/L (135-14 4) Potassium 4.1 Level mmol/L (3.5-5. 1) Chloride Level 103 mmol/L (97-110 ) Carbon Dioxide 30 Level mmol/L (21-31) Anion Gap 11 (5-13) Blood Urea 19 Nitrogen mg/dl (7-20) Creatinine 1.14 mg/dl (0.61-1. 24) Est Glomerular > 60 Filtrat mL/min (>60) Rate mL/min Glucose Level 109 mg/dl (70-220) Calcium Level 9.5 mg/dl (8.4-10. 2) Phosphorus 4.2 Level mg/dl (2.5-4.9 ) Magnesium 1.8 Level mg/dl (1.7-2.5 ) Test 01/23/19 08:37 Bedside 103 Glucose mg/dL (70-220) RENETTA LANG MD January 23, 2019 12:38
[2019-01-23] MEDS ORDERED: AMOX1TAB10 PO (12:39)
--- NOTE | 2019-01-23 16:02 | RADRPT ---
Vent Rate: 63 bpm RR Interval: 956 msec MD Interval: 237 msec QRS Duration: 95 msec QT Interval: 419 msec QTC Interval: 429 msec P-R-T [place]: 10 - 21 - 20 degrees Sinus rhythm...normal P axis, V-rate 50- 99 Prolonged MD interval...MD >220, V-rate 50- 90 Electronically Signed By: Geoffrey Hudson
[2019-01-23] MEDS ORDERED: NIFEdipine (XL) 30 MG TAB PO SCH (21:00)
== END 2019-01-23 13:08 | disposition home or self-care (01) | DRG 728 ==
LOC: E/R 20:49 → 6WM 23:05 → OBSVTOIN 01-21 11:25 → MS1 01-22 16:56
PROVIDERS: ADMIT Internal Medicine; ATTEND Internal Medicine
DX: B37.49 Other urogenital candidiasis (principal); I25.10 Atherosclerotic heart disease of native coronary artery without angina pectoris; I10 Essential (primary) hypertension; I25.82 Chronic total occlusion of coronary artery; E11.9 Type 2 diabetes mellitus without complications; N19 Unspecified kidney failure; E78.5 Hyperlipidemia, unspecified; I25.2 Old myocardial infarction; Z79.82 Long term (current) use of aspirin; Z85.46 Personal history of malignant neoplasm of prostate; Z87.891 Personal history of nicotine dependence; Z95.5 Presence of coronary angioplasty implant and graft
CPT/HCPCS: 36415; 71046; 74176; 80048; 80053; 80061; 81001; 82550; 82553; 82962; 83036; 83690; 83735; 84100; 84484; 85025; 85610; 85730; 87086; 93005; 93306; 96374; 96375; G0378; J0360; J0696; J1644; J1815; J1956; J2270; J2405; J7030